=== PATIENT | female | born 1990 | race African-American/Black ===

== ENCOUNTER 2017-07-10 19:58 | Observation (INO) | payer OTHER ==
[~2017-07-10] VITALS: Ht 188 cm; Wt 103.9 kg
[2017-07-10] MEDS ORDERED: PREN1TAB89 PO (20:59)
[2017-07-10 21:41] VITALS: BP 140/77
== END 2017-07-10 21:30 | disposition home or self-care (01) ==
LOC: 4S 19:58
PROVIDERS: ADMIT Obstetrics & Gynecology; ATTEND Obstetrics & Gynecology
DX: O26.892 Other specified pregnancy related conditions, second trimester (principal); R10.10 Upper abdominal pain, unspecified; Z3A.27 27 weeks gestation of pregnancy
CPT/HCPCS: 59025; 80307 ×8; 80349; G0378

== ENCOUNTER 2024-04-25 07:03 | Emergency (ER) | payer OTHER ==
[~2024-04-25] VITALS: Ht 185.4 cm; Wt 100.0 kg
[~2024-04-25 07:03] MED LIST: PREN1TAB89 PO
[2024-04-25 07:15] VITALS: BP 104/62; PULSE 86; RESP 15; TEMP 98.6; O2SAT 100
[2024-04-25] MEDS ORDERED: CYCL-448 PO (08:56)
[2024-04-25] MEDS: IBUPROFEN 600 MG TABLET PO ONE (09:09)
[2024-04-25] MEDS: LIDOCAINE 5% TRANSDERMAL PATCH TD ONE (09:10)
== END 2024-04-25 09:57 | disposition home or self-care (01) ==
LOC: EMS 07:03
DX: M54.6 Pain in thoracic spine (principal); F12.90 Cannabis use, unspecified, uncomplicated; V89.2XXA Person injured in unspecified motor-vehicle accident, traffic, initial encounter; Y93.89 Activity, other specified; Y92.410 Unspecified street and highway as the place of occurrence of the external cause; Y99.8 Other external cause status
CPT/HCPCS: 99283

== ENCOUNTER 2025-01-06 14:46 | Emergency (ER) | payer OTHER ==
[~2025-01-06] VITALS: Ht 188 cm; Wt 97.7 kg
[~2025-01-06 14:46] MED LIST changes: +CYCL-448 PO; -PREN1TAB89 PO
[2025-01-06 14:54] VITALS: BP 135/79; PULSE 94; RESP 18; TEMP 98; O2SAT 99
[2025-01-06] MEDS ORDERED: IBUP-1554 PO (16:17)
[2025-01-06] MEDS ORDERED: METH-659 PO (16:17)
== END 2025-01-06 16:50 | disposition home or self-care (01) ==
LOC: EMS 14:46
DX: M62.838 Other muscle spasm (principal); F12.90 Cannabis use, unspecified, uncomplicated; V89.2XXA Person injured in unspecified motor-vehicle accident, traffic, initial encounter; Y93.89 Activity, other specified; Y92.410 Unspecified street and highway as the place of occurrence of the external cause; Y99.8 Other external cause status
CPT/HCPCS: 99283; Z7502

== ENCOUNTER 2025-03-18 15:08 | Emergency (ER) | payer SELFPAY ==
[~2025-03-18] VITALS: Ht 188 cm; Wt 98.0 kg
[~2025-03-18 15:08] MED LIST changes: +IBUP-1554 PO; +METH-659 PO
[2025-03-18 15:31] VITALS: BP 113/71; PULSE 102; RESP 16; TEMP 98; O2SAT 98
[2025-03-18] MEDS ORDERED: ACET-66 PO (17:52)
[2025-03-18] MEDS: ACETAMINOPHEN 500 MG TABLET PO ONE (18:10)
[2025-03-18] MEDS: IBUPROFEN 600 MG TABLET PO ONE (18:10)
== END 2025-03-18 18:19 | disposition home or self-care (01) ==
LOC: EMS 15:08
DX: S39.012A Strain of muscle, fascia and tendon of lower back, initial encounter (principal); F12.90 Cannabis use, unspecified, uncomplicated; V43.52XA Car driver injured in collision with other type car in traffic accident, initial encounter; Y93.89 Activity, other specified; Y92.410 Unspecified street and highway as the place of occurrence of the external cause; Y99.8 Other external cause status
CPT/HCPCS: 99283